=== PATIENT | male | born 2000 | race Two or more races ===

== ENCOUNTER 2022-12-21 15:20 | Emergency (ER) | payer MEDICAID ==
[~2022-12-21] VITALS: Ht 170.2 cm; Wt 60.0 kg
[2022-12-21 15:32] VITALS: TEMP 99.3
[2022-12-21 16:06] LABS: COVID AG,FIA SOURCE NASAL SWAB
[2022-12-21 16:29] LABS: RAPID GROUP A STREP NEGATIVE (NEGATIVE)
[2022-12-21 16:35] LABS: SARS-COV2 (COVID) ANTIGEN,FIA Negative (Negative)
[2022-12-21 16:36] LABS: INFLUENZA TYPE A NEGATIVE FOR TYPE A (NEGATIVE); INFLUENZA TYPE B NEGATIVE FOR TYPE B (NEGATIVE)
[2022-12-21 17:30] VITALS: BP 124/74; PULSE 71; RESP 17
== END 2022-12-21 18:40 | disposition home or self-care (01) ==
LOC: EMS 15:20
DX: J02.9 Acute pharyngitis, unspecified (principal)
CPT/HCPCS: 87430; 87804; 99283